=== PATIENT | male | born 1945 | race Caucasian/White ===

== ENCOUNTER 2017-08-12 08:00 | Outpatient (CLI) | payer MEDICARE ==
[2017-08-12 09:35] LABS: Hematocrit 42.4 % (42.0-52.0); Mean Platelet Volume 8.4 fL (7.4-10.4); Red Blood Cell (RBC) Count 4.48 mill/uL (4.70-6.10); White Blood Cell (WBC) Count 5.5 thou/uL (4.8-10.8)
[2017-08-12 09:41] LABS: PTT 36.3 SEC (22.9-36.1); Prothrombin Time 14.4 SEC (12.0-14.7)
[2017-08-12 09:47] LABS: Anion Gap 9 mmol/L (10-20); BUN (Urea Nitrogen) 14 mg/dL (8.4-25.7); Calc. Creatinine Clearance 0 mL/min (70-130); Calcium 8.9 mg/dL (7.8-10.44); Carbon Dioxide 26 mmol/L (23-31); Chloride 105 mmol/L (98-107); Estimated GFR-MDRD Greater than 90
== END 2017-08-12 08:01 | disposition home or self-care (01) ==
LOC: LABBT 08:00
PROVIDERS: ATTEND Urology
DX: Z01.818 Encounter for other preprocedural examination (principal); N32.9 Bladder disorder, unspecified
CPT/HCPCS: 80048; 85027; 85610; 85730; 93005; 93010

== ENCOUNTER 2017-08-17 05:47 | Day surgery (SDC) | payer MEDICARE ==
[2017-08-12 08:30] VITALS: BMI 26.4
[2017-08-17] MEDS ORDERED: Levofloxacin 500 mg/D5W 100 ml Premix Bag ONE (06:14)
[2017-08-17] MEDS ORDERED: Midazolam HCl 2 mg/2 ml Vial ONE (06:54)
[2017-08-17] MEDS ORDERED: Fentanyl 100 MCG/2 ML VIAL ONE (06:54)
[2017-08-17] MEDS ORDERED: Iothalamate Meglumine 60% 50 ML VIAL FS ONE (07:15)
--- NOTE | 2017-08-17 09:30 | OP ---
DATE OF PROCEDURE: 08/17/2017 PREOPERATIVE DIAGNOSES: Bladder lesions and hematuria. POSTOPERATIVE DIAGNOSES: Bladder lesions and hematuria. PROCEDURE PERFORMED: Cystoscopy, bilateral retrogrades, transurethral resection of bladder tumor, ri ght stent placement. SURGEON: Dr. Alex Cisneros ANESTHETIC: General. ESTIMATED BLOOD LOSS: Minimal. DRAINS PLACED: A 4.8 x 26 Nicaraguan double-J stent in the right ureter. No string was left on it. An 18 [place]ar[place]uan Eagle catheter. FINDINGS: Lateral to the left ureteral orifice and not involving it was a 2 cm patch of papillary ch anges around the right trigone, right UO and lateral to the right UO there was a 3-4 cm patch of very edematous tissue, some with papillary changes. Retrograde studies on the left were normal. The rig ht ureter was dilated. I did not see an obvious filling defect. The ureter tapered down to the righ t ureterovesical junction. I did not see anything that looked obviously like a stone there. It did drain, it just drained slower on this side than the opposite side. Because of concern for tumor arou nd this area the stent was placed. I did not resect the orifice itself, but resected right up adjace nt to it on all sides. OPERATIVE TECHNIQUE: After obtaining written and verbal consent from the patient, he was taken to [facility] operating suite. He received IV antibiotics. He was placed in the supine position on the [facility] t table. PlexiPulses were placed on his lower extremities and turned on. He was given a general ane sthetic, oral intubation. He was placed in the dorsal lithotomy position and sterilely prepped and d raped. Cystoscopy was performed with a 22-[place]icaraguan sheath. This was well lubricated and passed under direct vision through the male urethra and into the urinary bladder with the aid of a 30 degree lens and a video camera and monitor. The bladder was filled and emptied a number of times and examined wi both a 30 and 70 degree lens. Using a 30-degree lens, we brought in a 5 [place]ar[place]uan Pollack catheter. A rental management trainee KUB was taken with the fluoroscopy unit. The Councill tip catheter was flushed with contras t. It was advanced into the right ureteral orifice and slowly we filled up that ureter with the abov e findings and the collecting system and then watched drainage films, there was delayed drainage on t hat side. The left side was done in a similar manner, it appeared normal caliber without any obstruc tion or filling defect. At this point, we brought in the gyrus and we placed a 24 Nicaraguan resectoscop e sheath with a visual obturator and 30 degree lens, we then hooked up our gyrus using a bladder tumo r loop and a 30-degree lens and a gyrus generator. We resected the papillary appearing lesion that w as lateral to left UO and elliked this out and sent it off and cauterized for hemostasis. Then, we r esected the other side and leaving the right ureteral orifice intact. We elliked out the specimen an d cauterized for hemostasis. We then removed these instruments, went back in with the cystoscope and passed a guidewire and a Pollack catheter up that right UO, there was still contrast coming down nancy t right ureter. We removed the open-ended catheter leaving the guidewire up the renal pelvis and pas sed the stent over pushing up into place with aid of a pusher so its proximal end coiled in the renal pelvis and its distal end coiled in the bladder when the wire was removed. We then re-resected some of the tissue just around the right ureteral orifice to get a little closer to it. With the safety of the stent being in and elliked this out, obtained hemostasis. We drained the bladder, removed the instruments, passed the Eagle catheter 18 Nicaraguan, placed 20 mL in the balloon and hand irrigated it. It was crystal clear, it was hooked up to drainage leg bag and he was taken out of dorsal lithotomy position, awakened, extubated, and taken by stretcher to the recovery room.
[2017-08-17] MEDS ORDERED: HYDROcodone/Acetaminophen 5/325 mg Tablet ONE (11:16)
--- NOTE | 2017-08-17 14:38 | RAD ---
RETROGRADE PYELOGRAM: Date: 08-11-17 Comparison: None. History: Retrograde study in Operating Room. FINDINGS: Thirteen images from a bilateral retrograde pyelogram provided. Study is provided for interpretation on 08-17-17. There is a suggestion of focal narrowing the distal right ureter and the level of the level of the ur eterovesicular junction. The ureter proximal to this is mildly dilated throughout the examination and there is mild blunting of the calices on the right suggesting a mild degree of right sided hydroneph rosis. Left ureter and left renal collecting system appear patent. IMPRESSION: Suggestion of narrowing of the distal ureter near the level of the ureterovesicular junction. The ure ter proximal to this demonstrates mild diffuse persistent dilation and there is blunting of the calic es on the right suggesting a mild degree of hydronephrosis. Recommend further evaluation via CT urogr am for better assessment of distal right ureter/right ureterovesicular junction to exclude underlying mass or stricture. Code T POS: RUBEN
[2017-08-17] MEDS ORDERED: Propofol 200 MG/20 ML VIAL ONE (16:01)
[2017-08-17] MEDS ORDERED: ePHEDrine/0.9% NaCl/PF SYRINGE 50 mg/10 ml ONE (16:01)
[2017-08-17] MEDS ORDERED: Glycopyrrolate 0.2 MG/ML 5 ML SYRINGE ONE (16:01)
[2017-08-17] MEDS ORDERED: Lidocaine 1% PF 5 ML VIAL ONE (16:01)
[2017-08-17] MEDS ORDERED: Ondansetron HCl/PF 4 MG/2 ML Vial ONE (16:01)
[2017-08-17] MEDS ORDERED: Dexamethasone 20 MG/5 ML VIAL ONE (16:01)
== END 2017-08-18 11:25 | disposition home or self-care (01) ==
LOC: SDC 05:47
PROVIDERS: ATTEND Urology
PROC: 0TBB8ZX Excision of Bladder, Via Natural or Artificial Opening Endoscopic, Diagnostic (ICD-10-PCS; principal; 2017-08-17)
PROC: 0T768DZ Dilation of Right Ureter with Intraluminal Device, Via Natural or Artificial Opening Endoscopic (ICD-10-PCS; 2017-08-17)
DX: N32.9 Bladder disorder, unspecified (principal); E78.5 Hyperlipidemia, unspecified; I10 Essential (primary) hypertension; Z79.82 Long term (current) use of aspirin; Z79.899 Other long term (current) drug therapy; Z90.89 Acquired absence of other organs; Z98.890 Other specified postprocedural states; Z86.19 Personal history of other infectious and parasitic diseases; Z85.9 Personal history of malignant neoplasm, unspecified
CPT/HCPCS: 52234; 52332; 74420; 88305; 88341; 88342; C1758; J1100; J1956; J2001; J2250; J2405; J2704; J3010; Q9961

== ENCOUNTER 2017-09-09 05:47 | Day surgery (SDC) | payer MEDICARE ==
[2017-09-08 10:16] VITALS: BMI 26.4
[2017-09-09] MEDS ORDERED: Levofloxacin 500 mg/D5W 100 ml Premix Bag ONE (06:45)
[2017-09-09] MEDS ORDERED: Fentanyl 100 MCG/2 ML VIAL ONE (06:56)
[2017-09-09] MEDS ORDERED: Iothalamate Meglumine 60% 50 ML VIAL FS ONE (07:19)
[2017-09-09] MEDS ORDERED: Midazolam HCl 2 mg/2 ml Vial ONE (07:22)
[2017-09-09] MEDS ORDERED: Phenazopyridine HCl 97.5 MG TABLET ONE (09:58)
--- NOTE | 2017-09-09 09:59 | RAD ---
RETROGRADE PYELOGRAM: FINDINGS/IMPRESSION: Two spot fluoroscopic intraoperative images during a right sided retrograde pyelogram demonstrate helen cement of a right sided ureteral stent. POS: RUBEN
--- NOTE | 2017-09-09 10:52 | OP ---
DATE OF PROCEDURE: 09/09/2017. PREOPERATIVE DIAGNOSES: History of bladder cancer, recently diagnosed and right hydronephrosis with stent. POSTOPERATIVE DIAGNOSES: History of bladder cancer, recently diagnosed and right hydronephrosis with stent. PROCEDURE PERFORMED: Cystoscopy, bladder biopsies, removal of right stent, right rigid and right fle xible ureteroscopy with brushings and biopsy of the right distal ureter, brushings of the mid ureter, brushings of the proximal ureter and urine cytology from right renal pelvis. SURGEON: Alex Cisneros M.D. ANESTHETIC: General. ESTIMATED BLOOD LOSS: Less than 50 mL. DRAINS PLACED: A 4.8 x 26 cm right double-J stent, no Eagle catheter was placed. FINDINGS: He had a history of [place] of the left bladder wall and we rebiopsied this area. We also bio psied the separate area of the left wall, right wall, anterior wall, posterior wall floor and prostat ic urethra. These were all then cauterized. We did not find anything of significant finding and rig ht ureteroscopy. He has hydronephrosis down to the region of the right distal ureter. There was no obstructing lesion noted. No obvious tumor noted. Some edema of the entire ureter, but this is prob ably from having a stent in for the last couple of weeks. No stone was noted, nothing to suggest pap illary necrosis on looking at the upper collecting system in its entirety. We did biopsies of the ri ght distal ureter and brushings of the right distal ureter and then brushings of the mid and proximal and then we flushed with saline the renal pelvis and obtained about 20 mL for cytology. OPERATIVE TECHNIQUE: After obtaining written and verbal consent from the patient, he was taken to [facility] operating suite. He received IV antibiotics already. PlexiPulses were placed on his lower extremi ties and turned on. He was given a general anesthetic and oral intubation. He was placed in the salud wendy lithotomy position and was sterilely prepped and draped. Cystoscopy was performed with a 22-Fren ch sheath. This was well lubricated and passed under direct vision through the male urethra and into the urinary bladder with the aid of a 30-degree lens and video camera and monitor. The bladder was examined with both 30 and 70-degree lens and filled and emptied a number of times. A coal getter KUB was t aken with the fluoroscopy unit. We then went ahead and used a small flexible biopsy forceps to biops y the areas mentioned above and then used the Bugbee electrode to cauterize these sites. We then gra sped the distal end of the double-J stent and brought out through the urethral meatus and fed a guide wire through this and up into the area of the proximal ureter as documented fluoroscopically. We the n went ahead and removed the cystoscopic equipment after draining the bladder. At this point, we swi tched from water over to saline. We went up with a small caliber graduated rigid ureteroscope throug h the male urethra under direct vision up the right ureter and as far up as about the vessels. There was no significant abnormality except for some edema of the ureteral wall which to me would be consi stent with anyone has had indwelling stent. There was no tight area of obstruction or narrowing and nothing to suggest a tumor growing in the ureter. We went ahead and brought in then a brush and did brushings under direct vision of the distal ureter and then biopsies of the very distal ureter and se nt these off. We then fed another guidewire up the right side through the rigid ureteroscope then re moved the rigid ureteroscope and then brought in a flexible ureteroscope and passed over one of these guidewires and placed it all the way up into the renal pelvis and then removed the guidewire. We se lectively looked in all of the infundibula and calices without finding any abnormality, tumor, stone or evidence of necrosis. We looked at the renal pelvis and we looked at the ureter all the way down to the distal third of the ureter. We then brought in a brush and did brushings of the proximal uret er, sent those off brushing to the mid ureter, sent those off and removed the flexible ureteroscope, we then placed a 5-Lao Pollack catheter through our remaining guidewire up into the area of the re nal pelvis, removed the guidewire and injected about 20 mL of sterile saline and then aspirated this back out and sent this for cytology. We then went ahead and shot a retrograde study, there was no hy dronephrosis at this time. Normal appearing collecting system and no extravasation. We replaced the guidewire, removed the Pollack catheter and backloaded the guidewire through the cystoscopic sheath and under direct vision and with the aid of fluoroscopy passed a 4.8 x 26 cm double-J stent without a string attached pushing up into place with aid of a pusher so its proximal end coiled in the renal p jennie and its distal end coiled in the bladder when the wire was removed. The bladder was drained, t he instruments were removed. The patient was taken out of dorsal lithotomy position, awakened, extub ated, and taken by stretcher to the recovery room.
[2017-09-09] MEDS ORDERED: HYDROcodone/Acetaminophen 5/325 mg Tablet ONE (11:21)
[2017-09-09] MEDS ORDERED: Lidocaine 1% PF 5 ML VIAL ONE (12:54)
[2017-09-09] MEDS ORDERED: Propofol 200 MG/20 ML VIAL ONE (12:54)
[2017-09-09] MEDS ORDERED: Ondansetron HCl/PF 4 MG/2 ML Vial ONE (12:54)
[2017-09-09] MEDS ORDERED: Glycopyrrolate 0.2 MG/ML 5 ML SYRINGE ONE (12:54)
[2017-09-09] MEDS ORDERED: ePHEDrine/0.9% NaCl/PF SYRINGE 50 mg/10 ml ONE (12:54)
[2017-09-09] MEDS ORDERED: PHENYLEPHRINE-NS 100 MCG/ML 10 ML SYRINGE ONE (12:54)
[2017-09-09] MEDS ORDERED: Dexamethasone 20 MG/5 ML VIAL ONE (12:54)
[2017-09-09] MEDS ORDERED: Esmolol 100 MG/10 ML VIAL ONE (12:54)
== END 2017-09-09 12:28 | disposition home or self-care (01) ==
LOC: SDC 05:47
PROVIDERS: ATTEND Urology
PROC: 0T768DZ Dilation of Right Ureter with Intraluminal Device, Via Natural or Artificial Opening Endoscopic (ICD-10-PCS; principal; 2017-09-09)
PROC: 0TP98DZ Removal of Intraluminal Device from Ureter, Via Natural or Artificial Opening Endoscopic (ICD-10-PCS; 2017-09-09)
DX: N32.89 Other specified disorders of bladder (principal); N13.39 Other hydronephrosis; I10 Essential (primary) hypertension; Z91.048 Other nonmedicinal substance allergy status; Z85.51 Personal history of malignant neoplasm of bladder
CPT/HCPCS: 52332; 74420; 88112; 88305; C1758; J1100; J1956; J2001; J2250; J2405; J2704; J3010; Q9961